=== PATIENT | female | born 1960 | race Caucasian/White ===

== ENCOUNTER 2023-11-18 07:55 | Day surgery (SDC) | payer BC ==
[~2023-11-18] VITALS: Ht 157.5 cm; Wt 58.5 kg
[~2023-11-18 07:55] MED LIST: BAYE81TA10 PO; FAMO20TA5 PO; FARX1TAB5 PO; GLIP10TA18 PO; LEVO25TA5 PO; METF-838 PO; OLME5TAB24 PO; ROSU40TA4 PO; SEMA0.257 SC; VENL225T32 PO
[2023-11-18] MEDS: NS 1,000 ML IV ONE (08:14)
[2023-11-18] MEDS ORDERED: fentaNYL 100 MCG/2 ML INJECTION As Ordered ONE (08:51)
[2023-11-18] MEDS ORDERED: LIDOCAINE 2% 100MG/5ML SDV (FOR ANES.) As Ordered ONE (08:51)
[2023-11-18] MEDS ORDERED: propofoL 200 MG/20 ML VIAL As Ordered ONE (08:51)
[2023-11-18] MEDS ORDERED: ONDANSETRON 4MG 2ML VIAL As Ordered ONE (08:52)
[2023-11-18] MEDS ORDERED: ePHEDrine SULFATE 25 MG/5 ML(5MG/ML) SYRINGE As Ordered ONE (09:13)
[2023-11-18] MEDS ORDERED: PHENYLephrine 500MCG 5ML (100MCG/ML) SYRINGE As Ordered ONE (09:22)
[2023-11-18 09:39] VITALS: TEMP 97.9
[2023-11-18 09:55] VITALS: BP 101/54; O2SAT 96
== END 2023-11-18 10:08 | disposition home or self-care (01) ==
LOC: M OPP 07:55
PROVIDERS: ATTEND Internal Medicine Gastroenterology
DX: D12.2 Benign neoplasm of ascending colon (principal); K64.8 Other hemorrhoids; K57.30 Diverticulosis of large intestine without perforation or abscess without bleeding; K58.1 Irritable bowel syndrome with constipation; R12 Heartburn; E03.9 Hypothyroidism, unspecified; I10 Essential (primary) hypertension; E11.9 Type 2 diabetes mellitus without complications; Z79.02 Long term (current) use of antithrombotics/antiplatelets; Z79.1 Long term (current) use of non-steroidal anti-inflammatories (NSAID); Z79.82 Long term (current) use of aspirin; Z79.84 Long term (current) use of oral hypoglycemic drugs; Z79.890 Hormone replacement therapy; Z79.899 Other long term (current) drug therapy; Z88.0 Allergy status to penicillin; Z88.8 Allergy status to other drugs, medicaments and biological substances
CPT/HCPCS: 43239; 45385; 88305; J2371; J2405; J3010